=== PATIENT | male | born 2000 | race Caucasian/White ===

== ENCOUNTER 2022-12-10 16:43 | Emergency (ER) | payer OTHER ==
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
[2022-12-10] MEDS ORDERED: KETOROLAC 15 MG/ML 1 ML VIAL IM STA (18:16)
[2022-12-10 18:43] VITALS: BP 128/83; PULSE 81; RESP 18; TEMP 98
== END 2022-12-10 18:35 | disposition home or self-care (01) ==
LOC: EC 16:43
DX: S01.81XA Laceration without foreign body of other part of head, initial encounter (principal); Y04.0XXA Assault by unarmed brawl or fight, initial encounter
CPT/HCPCS: 72125; 70450; 99284; 96372; J1885